=== PATIENT | female | born 1995 | race African-American/Black ===

== ENCOUNTER 2021-11-10 01:36 | Emergency (ER) | payer MEDICAID, OTHER ==
[2021-11-10] MEDS ORDERED: Ketorolac Tromethamine 30 MG/ML VIAL ONE (02:18)
[2021-11-10 02:34] LABS: Bilirubin Neg (Negative); Blood, Urine Negative (Negative); Clarity Clear (Clear); Glucose, Urine (Dipstick) Normal (Negative); Ketone, Urine Negative (Negative); Leukocyte 25 (Negative); Nitrite Negative (Negative); Protein, Urine (Dipstick) Negative (Neg-Trace); Urobilinogen Normal mg/dL (Less than 2)
[2021-11-10 02:36] LABS: Hemoglobin 11.7 g/dL (12.0-15.5); Mean Corpuscular HGB CONC 32.9 g/dL (32.0-36.0); Mean Corpuscular Hemoglobin 29.5 pg (27.0-33.0); Mean Corpuscular Volume 89.7 fl (81.6-98.3); Platelet Count 341 10x3/uL (150-450); Pregnancy Test - Urine (BHCG) Negative (Negative); Pregu Control Background? CLEAR/WHITE (CLR/WHITE); Pregu Control Bar Appear? YES (CONTROL BAR); RBC Distribution Width 14.9 % (11.5-14.5); Red Blood Cell (RBC) Count 3.97 10x6/uL (3.90-5.03)
[2021-11-10 02:43] LABS: Bacteria/HPF Rare-Few HPF (None Seen); RBC/HPF 0-3 HPF (0-3)
[2021-11-10 02:50] LABS: ALT (SGPT) 37 U/L (8-55); AST (SGOT) 19 U/L (5-34); Albumin 3.8 g/dL (3.5-5.0); Alkaline Phosphatase 65 U/L (40-110); Anion Gap 14 mmol/L (10-20); BUN (Urea Nitrogen) 13 mg/dL (7.0-18.7); Bilirubin, Total 0.2 mg/dL (0.2-1.2); Calc. Creatinine Clearance 0 mL/min (70-130); Calcium 9.4 mg/dL (7.8-10.44); Carbon Dioxide 26 mmol/L (22-29); Chloride 105 mmol/L (98-107); Globulin 2.5 g/dL (2.4-3.5); Glucose 88 mg/dL (70-105); Lipase 23 U/L (8-78); Potassium 4.3 mmol/L (3.5-5.1); Protein, Total 6.3 g/dL (6.0-8.3); Sodium 141 mmol/L (136-145)
[2021-11-10 03:09] LABS: MDiff Complete? YES
[2021-11-10 03:12] LABS: Eosinophils 2 % (0-10); Lymphocytes 34 % (21-51); Monocytes 1 % (0-10); Neutrophil 63 % (42-75)
[2021-11-10 03:13] LABS: Platelet Morphology Comment Appears Adequate
[2021-11-10 03:14] LABS: RBC Morphology Normal
[2021-11-10] MEDS ORDERED: Piperacillin/Tazobactam 4.5 GM VIAL ONE (05:00)
[2021-11-10] MEDS ORDERED: diphenhydrAMINE 50 MG/ML VIAL ONE (05:25)
[2021-11-10 06:11] LABS: SARS-CoV-2 NAA Rapid Test Not Detected (NotDetected)
[2021-11-10] MEDS ORDERED: EPINEPHrine 1 MG/ML AMP ONE (10:30)
[2021-11-10] MEDS ORDERED: Bupivacaine 0.25% HCL 30 ML VIAL ONE (10:30)
[2021-11-10] MEDS ORDERED: PROPOFOL 20 ML ONE ×2 (10:40→11:55)
[2021-11-10] MEDS ORDERED: Glycopyrrolate 0.2 MG/ML 5 ML SYRINGE ONE (10:41)
[2021-11-10] MEDS ORDERED: Lidocaine 1% PF 5 ML VIAL ONE (10:41)
[2021-11-10] MEDS ORDERED: Rocuronium Bromide 10 MG/ML (10ML VIAL) ONE (10:41)
[2021-11-10] MEDS ORDERED: Dexamethasone 4 mg/ml Vial ONE (10:41)
[2021-11-10] MEDS ORDERED: Ondansetron PF 4 MG/2 ML Vial ONE (10:42)
[2021-11-10] MEDS ORDERED: Fentanyl 100 MCG/2 ML VIAL ONE ×2 (10:45→12:59)
[2021-11-10] MEDS ORDERED: ceFAZolin 2 GM/Dextrose 50 ML IVPB ONE (10:53)
== END 2021-11-10 10:18 | disposition admitted as inpatient to this hospital (09) ==
LOC: CSHERS 01:36
DX: K81.0 Acute cholecystitis (principal); Z20.822 Contact with and (suspected) exposure to COVID-19
CPT/HCPCS: 76705; 80053; 81003; 81015; 81025; 83690; 85025; 88304; 96374; 96375; C1713; J0171; J0690; J1100; J1200; J1885; J2405; J2543; J2704; J3010; S0020; U0002

== ENCOUNTER 2021-11-24 02:51 | Emergency (ER) | payer OTHER | END 2021-11-24 03:20 | disposition home or self-care (01) | LOC: CSHERS 02:51 | DX: J02.9 Acute pharyngitis, unspecified (principal); R09.81 Nasal congestion; R05.9 Cough, unspecified | CPT/HCPCS: 99281 ==

== ENCOUNTER 2022-02-11 22:50 | Emergency (ER) | payer OTHER ==
[2022-02-12] MEDS ORDERED: Ketorolac Tromethamine 30 MG/ML VIAL ONE (01:02)
== END 2022-02-12 01:20 | disposition home or self-care (01) ==
LOC: CSHERS 22:50
DX: J03.90 Acute tonsillitis, unspecified (principal)
CPT/HCPCS: 99283; J1885